=== PATIENT | male | born 1980 | race Caucasian/White ===

== ENCOUNTER 2017-06-19 22:59 | Emergency (ER) | payer OTHER ==
[~2017-06-19] VITALS: Ht 167.6 cm; Wt 61.9 kg
[2017-06-19 23:10] VITALS: BP_SYST 109; BP_DIAS 6; BP_DIAS 69; PULSE 96; RESP 18; TEMP 98.8; O2SAT 100
[2017-06-20] MEDS ORDERED: ONDANSETRON ODT 4 MG TAB PO ONE
--- NOTE | 2017-06-20 00:03 | PD ---
HPI Chief Complaint: GI Complaint Time Seen by Provider: 23:53 Travel History International Travel<30 days: No Contact w/Intl Traveler<30days: No Traveled to known affect area: No History of Present Illness HPI 36-year-old male presents to emergency department for evaluation of dizziness and nausea. He states that he is visiting from [place] for beach today to get away. He states that he had broken up with his girlfriend earlier today. He does admit to injecting IV heroin. He states that his girlfriend also does heroin. He claims that this is only the third time he has done it. He denies feeling sick earlier today. He states that he was in his normal state health when they had left the house in [place]. He denies any fever or chills. No cough, congestion. No vomiting. No abdominal pain. No dysuria, frequency. No diarrhea. PFSH Past Medical History Narrative Medical IV drug abuse Diminished Hearing: No Medical other: Yes (IV drug use) Tetanus Vaccination: < 5 Years Influenza Vaccination: No Past Surgical History Surgical History: No Previous Surgery Social History Alcohol Use: Yes (couple times a week) Tobacco Use: Yes (cigarettes and vap) Substance Use: Yes (heroin, marijauna, cocaine) Allergies-Medications (Allergen,Severity, Reaction): Coded Allergies: No Known Allergies (Unverified , 06/19/17) Reported Meds & Prescriptions Reported Meds & Active Scripts Active Vistaril (Hydroxyzine Pamoate) 50 Mg Cap 50 Mg PO QID Zofran Odt (Ondansetron Odt) 8 Mg Tab 8 Mg SL Q8H PRN Review of Systems Except as stated in HPI: all other systems reviewed are Neg Physical Exam Narrative GENERAL: Well-developed, well-nourished in no apparent distress. Nontoxic appearing. HEAD: Normocephalic, atraumatic. EYES: Pupils equal round and reactive. Extraocular motions intact. No scleral icterus. No injection or drainage. ENT: Nose clear. Throat without erythema, tonsillar hypertrophy or exudate. Uvula midline. Airway patent. NECK: Trachea midline. Supple, nontender, moves head freely. No central bony tenderness or spasm. CARDIOVASCULAR: Regular rate and rhythm without murmurs, gallops, or rubs. RESPIRATORY: Clear to auscultation. Breath sounds equal bilaterally. No wheezes , rales, or rhonchi. GASTROINTESTINAL: Abdomen soft, non-tender, nondistended. No hepato-splenomegaly , or palpable masses. No guarding. EXTREMITIES: No clubbing, cyanosis, or edema. No joint tenderness. Patient has track gastelum in both antecubital fossa and forearms. No evidence of any skin infection. BACK: Nontender without deformity. No flank tenderness. NEUROLOGICAL: Awake, alert and oriented x 3 .Cranial nerves grossly intact. Motor and sensory grossly within normal limits. Normal speech. Data Data Last Documented VS Vital Signs Date Time Temp Pulse Resp B/P (MAP) Pulse Ox O2 Delivery O2 Flow Rate FiO2 06/19/17 23:10 98.8 96 18 109/69 (82) 100 Orders Orders Ondansetron Odt (Zofran Odt) (06/20/17 00:00) Hydroxyzine Pamoate (Vistaril) (06/20/17 00:00) [facility] Medical Decision Making Medical Screen Exam Complete: Yes Emergency Medical Condition: Yes Medical Record Reviewed: Yes Differential Diagnosis Differential diagnosis: Drug withdrawal, gastritis, viral syndrome, anxiety Narrative Course Patient is well-appearing. His vital signs are normal. His exam is unremarkable. He'll be given 8 mg of Zofran by mouth as well as Vistaril 50 mg by mouth. This will be followed by a by mouth challenge. At this time I do not believe laboratory testing is indicated. The patient is feeling better. He is taking by mouth without vomiting. Patient 's consider medically cleared. This is nausea, IV drug abuse Diagnosis Primary Impression: nausea Additional Impression: IV drug abuse Referrals: [facility] day Patient Instructions: General Instructions Additional Instructions: Rest. Increase fluids. Avoid alcohol. Avoid illegal substances. Follow-up with [facility] for detox. Do not operate a car or any heavy machinery under the influence of alcohol or drugs. Follow-up with a medical doctor this week. Return to the ER for emergencies Med/Other Pt SpecificInfo: Prescription(s) given Scripts Hydroxyzine Pamoate (Vistaril) 50 Mg Cap 50 MG PO QID, #20 CAP 0 Refills Prov: Ramesh Fairbanks MD 06/20/17 Ondansetron Odt (Zofran Odt) 8 Mg Tab 8 MG SL Q8H Y for NAUSEA OR VOMITING, #6 TAB 0 Refills Prov: Ramesh Fairbanks MD 06/20/17 Disposition: 01 DISCHARGE HOME Condition: Stable Luca Morel Jun 20, 2017 00:03
[2017-06-20] MEDS ORDERED: ZOFR8TAB4 SL (00:04)
[2017-06-20] MEDS ORDERED: VIST50CA PO (00:04)
== END 2017-06-20 01:52 | disposition home or self-care (01) ==
LOC: NEPD 22:59
DX: R11.0 Nausea (principal); R42 Dizziness and giddiness; F19.10 Other psychoactive substance abuse, uncomplicated; Z72.0 Tobacco use
CPT/HCPCS: 99283